=== PATIENT | female | born 1985 | race Caucasian/White ===

== ENCOUNTER 2021-09-24 08:34 | Emergency (ER) | payer SELFPAY ==
[2021-09-24] MEDS ORDERED: cefTRIAXone 1 GM Vial IVPUSH ONE (10:06)
[2021-09-24] MEDS ORDERED: Azithromycin 250 MG Tab PO ONE (10:07)
[2021-09-24] MEDS ORDERED: metroNIDAZOLE 500 MG Tab PO ONE (10:08)
[2021-09-24] MEDS ORDERED: cefTRIAXone 1 GM Vial IM ONE (11:08)
[2021-09-24 11:51] LABS: BARBITURATE SCREEN,URINE NEGATIVE (NEGATIVE); BENZODIAZEPINES SCREEN,URINE NEGATIVE (NEGATIVE); METHAMPHETAMINE SCREEN, URINE NEGATIVE (NEGATIVE); THC SCREEN,URINE 50 NG/ML NEGATIVE (NEGATIVE)
[2021-09-24 11:52] LABS: BUPRENORPHINE SCREEN,URINE NEGATIVE (NEGATIVE)
[2021-09-26 12:06] LABS: C.TRACHOMATIS BY TMA Negative (Negative)
[2021-09-26 12:14] LABS: N.GONORRHOEAE BY TMA Positive (Negative)
== END 2021-09-24 11:26 | disposition home or self-care (01) ==
LOC: VM.ED 08:34
DX: A64 Unspecified sexually transmitted disease (principal); F31.10 Bipolar disorder, current episode manic without psychotic features, unspecified; F20.9 Schizophrenia, unspecified; Z88.0 Allergy status to penicillin; Z88.5 Allergy status to narcotic agent; Z91.048 Other nonmedicinal substance allergy status; Z72.0 Tobacco use
CPT/HCPCS: 80305-QW; 87491; 87591; 96372; 99284; A9270-GY; J0696